=== PATIENT | female | born 1975 | race Asian ===

== ENCOUNTER 2018-09-02 09:45 | Emergency (ER) | payer OTHER ==
[~2018-09-02] VITALS: Ht 152.4 cm; Wt 40.8 kg
[2018-09-02 09:47] VITALS: Ht 152.4 cm; Wt 40.8 kg
[2018-09-02 12:19] VITALS: BP 112/53
== END 2018-09-02 12:19 | disposition home or self-care (01) ==
LOC: ED 09:45
DX: R42 Dizziness and giddiness (principal); R11.0 Nausea
CPT/HCPCS: 82962